=== PATIENT | male | born 1980 | race Caucasian/White ===

== ENCOUNTER 2018-07-17 01:38 | Emergency (ER) | payer MEDICAID, OTHER ==
[~2018-07-17] VITALS: Ht 175.3 cm; Wt 84.0 kg
[2018-07-17] MEDS ORDERED: IBUPROFEN 800MG TABLET PO ONE (03:30)
[2018-07-17 04:30] VITALS: BP 125/74
== END 2018-07-17 04:30 | disposition home or self-care (01) ==
LOC: ER 02:22
DX: H92.02 Otalgia, left ear (principal); H61.22 Impacted cerumen, left ear
CPT/HCPCS: 99282